=== PATIENT | female | born 1955 | race Caucasian/White ===

== ENCOUNTER 2025-06-13 12:43 | Emergency (ER) | payer MEDICARE ==
[~2025-06-13] VITALS: Ht 177.8 cm; Wt 95.4 kg
[2025-06-13 13:12] VITALS: TEMP 97.9
--- NOTE | 2025-06-13 13:25 | Physician Documentation ---
History of Present Illness ~ General Chief Complaint: See Chief Complaint Stated Complaint: LUNG ISSUES Time Seen by MD: 13:38 Source: patient Mode of Arrival: POV Exam Limitations: no limitations History of Present Illness Initial Comments 69-year-old female with strong family history of cancer does have a primary care provider as well as an oncologist but is unable to receive subjective adequate care for prominent lymph nodes 1 to her groin some to her neck and 1 opacity found in a lung x-ray due to a TB screening. Patient states that her primary care at [facility] has sent referrals and images in but it has been over a year and that she has been able to get images. Since the x-ray showed an opacity she is here because she wants to CT of her chest to evaluate if this is a lymph node Medication Reconciliation Allergies: Coded Allergies: diazepam (Verified Allergy, Unknown, 06/13/25) Physical Exam Physical Exam Vital Signs: Temperature: 97.9, Source: Temporal, Heart Rate: 78, Respiratory Rate: 18, BP: 144/87, Pulse Oximetry: 99, Weight: 95.400 Oxygen Flow Rate: 0 Physical Exam General: Alert, no apparent distress. HEENT: moist mucous membranes. Neck: Full range of motion. Respiratory: No respiratory distress speaking in full sentences Chest: No accessory muscle use. Cardiovascular: Appears well perfused Neurologic: Oriented x4. Psychiatric: Anxious appearing Skin: Normal color, warm and dry. No edema, no ecchymosis. Progress Results/Orders Results/Orders Vital Signs 06/13/25 13:12 Temp 97.9 Pulse 78 Resp 18 B/P (MAP) 144/87 Pulse Ox 99 O2 Flow Rate 0 Medical Decision Making Findings Registration picked up an order from her primary care provider for an ultrasound which can be done at 2:30 a.m. we will discharge to go through outpatient imaging Departure Time of Disposition: 13:39 Disposition: 01 HOME / SELF CARE / HOMELESS Impression: Primary Impression: Lymphadenopathy Condition: Improved Additional Instructions: We did receive the order for an ultrasound. When you leave the emergency room go into the front of the hospital to registration I have physically seen in the order. They will be able to do the ultrasound at 2:30 a.m. but you need to go over there and register. Referrals: NO PRIMARY CARE PROVIDER (PCP) Education Educated: Patient Educated regarding: diagnosis, treatment, need for follow up Signature Scribe Signature: No scribe Attestation: The note accurately reflects work and decisions made by me.Audrey BLUM 06/13/25 13:40 AUDREY RODRÍGUEZ NP Jun 13, 2025 13:25
[2025-06-13 13:49] VITALS: BP 144/87; PULSE 79; RESP 16; O2SAT 98
== END 2025-06-13 14:02 | disposition home or self-care (01) ==
LOC: ER 12:44
DX: R59.1 Generalized enlarged lymph nodes (principal); Z88.8 Allergy status to other drugs, medicaments and biological substances
CPT/HCPCS: 99282

== ENCOUNTER 2025-06-13 14:15 | Outpatient (CLI) | payer MEDICARE ==
--- NOTE | 2025-06-13 19:44 | RADIOLOGY REPORT ---
Procedure: US US NON VASCULAR 06/13/2025 02:32 PM Indication: GENERALIZED ENLARGED LYMPH NODES Comparison: None Technique: Real-time grayscale and color images were obtained of the left groin in the area of palpated mass. FINDINGS: In the left groin there is a 1.8 x 0.5 by 0.9 cm left inguinal lymph node with symmetric cortex and preservation of the fatty hilum. IMPRESSION: Left inguinal lymph node with normal morphology in the area of palpated mass
== END 2025-06-13 23:59 | disposition home or self-care (01) ==
LOC: RAD 14:15
PROVIDERS: ATTEND Nurse Practitioner
DX: R59.1 Generalized enlarged lymph nodes (principal)
CPT/HCPCS: 76882

== ENCOUNTER 2025-06-16 12:57 | Outpatient (CLI) | payer MEDICARE ==
--- NOTE | 2025-06-16 19:42 | RADIOLOGY REPORT ---
CT Chest without intravenous contrast INDICATION: ABNORMAL FINDINGS ON DX IMAGING OF OT BODY STRUCTURES TECHNIQUE: Multidetector spiral CT of the chest was performed from the lung apices to the upper abdomen. Axial, coronal and sagittal multiplanar reformats were performed. Radiation Dose : 1. Chest: CTDI volume is 11.52 mGy. Dose-length product is 442.92 mGy*cm The dose indicators for CT are the volume Computed Tomography (CT) Dose Index (CTDIvol) and the Dose Length Product (DLP), and are measured in units of mGy and mGy-cm, respectively. These indicators are not patient dose, but values generated from the CT scanner acquisition factors. The report includes radiation exposure data for exposures received during this examination. Comparison: None Findings: Lower neck: Normal thyroid. Lungs: No focal consolidation. Heart/Vascular Structures: Normal heart size. No pericardial effusion. Coronary calcifications. Lymph Nodes: No adenopathy Pleura: No pleural effusion or significant pneumothorax. Musculoskeletal: No acute osseous abnormality. Soft tissues: Normal. Upper abdomen: Prior gastric bypass. Right upper pole renal cyst, incompletely imaged, measuring 7.7 cm. IMPRESSION: No acute or suspicious thoracic finding. Radiation optimization: All CT scans at this facility use at least one of these dose optimization techniques: automated exposure control mA and/or kV adjustment per patient size (includes targeted exams where dose is matched to clinical indication) or iterative reconstruction.
== END 2025-06-16 23:59 | disposition home or self-care (01) ==
LOC: RAD 12:57
PROVIDERS: ATTEND Nurse Practitioner
DX: R93.89 Abnormal findings on diagnostic imaging of other specified body structures (principal); N28.1 Cyst of kidney, acquired; Z98.84 Bariatric surgery status
CPT/HCPCS: 71250